=== PATIENT | female | born 1950 | race Caucasian/White ===

== ENCOUNTER 2020-09-13 12:17 | Emergency (ER) | payer OTHER ==
[2020-09-13] MEDS ORDERED: Rabies Immune Globulin PF 150 Units/ML 2 ML SDV IM ONE (13:12)
[2020-09-13] MEDS ORDERED: Rabies Vaccine (Avian) 2.5 Unit Inj Kit IM ONE (13:12)
--- NOTE | 2020-09-13 13:27 | EDM.PDOC ---
ED HPI GENERAL MEDICAL PROBLEM - General Chief Complaint: Bite:Animal, Insect Stated Complaint: BAT BITE Time Seen by Provider: 09/13/20 12:48 Source of Information: Reports: Patient History Limitations: Reports: No Limitations - History of Present Illness INITIAL COMMENTS - FREE TEXT/NARRATIVE: 70-year-old female presents the emergency department today with complaints of a bat bite to the tip of her left middle finger that occurred yesterday afternoon. The patient works for the [employer] and states that she was trimming michel when she felt something pitch her finger. She initially thought it was a bee or wasp sting. She pulled her hand back and there was no stinger, or bites or broken skin. She states she then looked and noticed under the michel was a bat laying there. She states he did appear sick as she states he did not move. She states that her boss then disposed of the bat. She called a friend of hers last evening was a nurse practitioner and was told to get to the ER immediately. She states she does have a history of hypertension and high cholesterol and diabetes. Her primary care provider is located in [place]. - Related Data Allergies Allergy/AdvReac Type Severity Reaction Status Date / Time No Known Allergies Allergy Verified 09/13/20 12:42 Home Meds: Home Meds Insulin Degludec [Tresiba] 16 unit SQ DAILY 09/13/20 [History] Insuln Asp Prot/Insulin Aspart [NovoLOG Mix 70-30] 0 unit SQ ASDIRECTED 09/13/20 [History] Omeprazole 20 mg PO DAILY 09/13/20 [History] Valsartan 40 mg PO DAILY 09/13/20 [History] Past Medical History HEENT History: Reports: Cataract Respiratory History: Reports: Asthma Endocrine/Metabolic History: Reports: Diabetes, Type II, Obesity/BMI 30+ Hematologic History: Reports: Iron Deficiency - Infectious Disease History Infectious Disease History: Reports: Novel Coronavirus - Past Surgical History HEENT Surgical History: Reports: Adenoidectomy, Cataract Surgery, Tonsillectomy Other Musculoskeletal Surgeries/Procedures:: right ankle/heel surgery Social & Family History - Tobacco Use Tobacco Use Status *Q: Former Tobacco User Used Tobacco, but Quit: Yes Month/Year Tobacco Last Used: 02/1994 - Caffeine Use Caffeine Use: Reports: Coffee - Recreational Drug Use Recreational Drug Use: No ED ROS GENERAL - Review of Systems Review Of Systems: Comprehensive ROS is negative, except as noted in HPI. ED EXAM, ANIMAL BITE - Physical Exam Exam: See Below Exam Limited By: No Limitations General Appearance: Alert, WD/WN, No Apparent Distress Ears: Normal External Exam, Hearing Grossly Normal Nose: Normal Inspection Throat/Mouth: Normal Inspection, Normal Lips, Normal Voice, No Airway Compromise Head: Atraumatic Neck: Normal Inspection, Supple Respiratory/Chest: No Respiratory Distress, No Accessory Muscle Use Cardiovascular: Normal Peripheral Pulses, Regular Rate, Rhythm GI/Abdominal: No Distention (Female) Exam: Deferred Rectal (Female) Exam: Deferred Back Exam: Normal Inspection Extremities: Normal Inspection, Normal Range of Motion, Non-Tender, No Pedal Edema, Normal Capillary Refill Neurological: Alert, Oriented, Normal Cognition Psychiatric: Normal Affect, Normal Mood Skin Exam: Normal Color, Warm/Dry Lymphadenopathy: Bilateral: No Adenopathy Lymphatic: No Adenopathy Course - Vital Signs Text/Narrative:: Upon assessment, there is no broken skin noted to the distal left middle finger. However, per CDC recommendations the patient will need to be treated for rabies. I have ordered for the patient to receive 1 mL of the rabies vaccination today. I have written for outpatient orders for the patient to receive 1 mL of the rabies vaccine on days 3 7 and 14. She will also receive 1480 units of the rabies immunoglobulin today while in the emergency department. Last Recorded V/S: Last Vital Signs Temp 97.1 F 09/13/20 12:39 Pulse 59 L 09/13/20 12:39 Resp 16 09/13/20 12:39 BP 183/95 H 09/13/20 12:39 Pulse Ox 99 09/13/20 12:39 - Orders/Labs/Meds Orders: Active Orders 24 hr Category Date Time Status Vaccines to be Administered [RC] PER UNIT ROUTINE Care 09/13/20 13:14 Active Meds: Medications Discontinued Medications Generic Name Dose Route Start Last Admin Trade Name Freq PRN Reason Stop Dose Admin Rabies Immune Globulin 1,480 unit 09/13/20 13:12 Rabies Immune Globulin Pf 150 Units/Ml 2 Ml Sdv IM 09/13/20 13:13 .ONCE ONE Rabies Vaccine 2.5 unit 09/13/20 13:12 Rabies Vaccine (Ovidio) 2.5 Unit Inj Kit IM 09/13/20 13:13 .ONCE ONE - Re-Assessments/Exams Free Text/Narrative Re-Assessment/Exam: 09/13/20 13:30 The patient will be discharged to home with outpatient orders to follow up for rabies vaccinations. Departure - Departure Time of Disposition: 13:31 Disposition: Home, Self-Care 01 Condition: Good Clinical Impression: Bat bite of finger Qualifiers: Encounter type: initial encounter Qualified Code(s): S61.259A - Open bite of unspecified finger without damage to nail, initial encounter; W55.81XA - Bitten by other mammals, initial encounter - Discharge Information Instructions: Animal Bite, Adult, [id number] Referrals: Henna Souza MD [Primary Care Provider] - Forms: ED Department Discharge Additional Instructions: You were seen in the emergency department after being bit by a bat yesterday afternoon. While in the emergency department you received the rabies vaccine and the rabies immunoglobulin. You will need to come back to have the rabies vaccination in 3 days time, in 7 days time and in 14 days time. This will be set up by the nursing staff. Should your condition worsen or change, do not hesitate returning to the ER. Sepsis Event Note (ED) - Evaluation Sepsis Screening Result: No Definite Risk - Focused Exam Vital Signs: Vital Signs Temp Pulse Resp BP Pulse Ox 09/13/20 12:39 97.1 F 59 L 16 183/95 H 99 - My Orders Last 24 Hours: My Active Orders 09/13/20 13:14 Vaccines to be Administered [RC] PER UNIT ROUTINE - Assessment/Plan Last 24 Hours: My Active Orders 09/13/20 13:14 Vaccines to be Administered [RC] PER UNIT ROUTINE
[2020-09-13] MEDS ORDERED: Rabies Immune Globulin/PF 300 UNIT/ML 5 ML SDV IM ONE (14:00)
== END 2020-09-13 14:30 | disposition home or self-care (01) ==
LOC: JD.ED 12:17
DX: S61.253A Open bite of left middle finger without damage to nail, initial encounter (principal); Z23 Encounter for immunization; W55.81XA Bitten by other mammals, initial encounter
CPT/HCPCS: 90375; 90471; 90675; 96372; 99283